=== PATIENT | female | born 1955 | race Caucasian/White ===

== ENCOUNTER → 2018-09-29 | Outpatient (CLI) | payer MEDICARE, OTHER ==
[~2018-09-29] MED LIST: ACEBUTCAFT PO; ACETAMINOPHEN; ACYC800 PO; ALBIPROI INH; ALBU2.5V5 NEB; ALBU90OI; ALBU90OI INH; ALBU90OI6 INH; ALBU90OI61 INH; ALPR1 PO; AMIT25 PO; AMIT50 PO; AMIT75 PO; AMOCLA875 PO; AMOX500 PO; ARIP30 PO; ASCO500 PO; ATOR40TA; ATOR40TA PO; AZIT250 PO; Abilify5 MG PO; Alprazolam2 MG PO; Amitriptyline150 MG PO; Ativan1 MG PO; BASAGLAR K100 UNIT/1 SC; BENZ1; BUTASPCAF PO; Benztropine Mesy1 MG PO; CARV6.25 PO; CHOL10002 PO; CIPR500 PO; CLON.1 PO; CLON.2 TOP; CLON.5; CLON.5 PO; CLON1; CLON1 PO; CLON2; CLON2 PO; CODBUTACEC PO; CYAN500 PO; CYCL10 PO; CYMBALTA; Cymbalta30 MG PO; DEPAKOTE; DHEA PO; DIAZ10 PO; DIAZ2 PO; DIAZ5 PO; DIVA125EC PO; DIVA500EC; DIVA500ER; DIVA500ER PO; DOXE25 PO; DOXE50; DULO30; DULO30 PO; DULO60 PO; ERGO400 PO; ERGO50000 PO; FERR325; FERR325 PO; FLUSAL115; FLUSAL2505; FLUSAL2505 IH; FLUSAL5005 IH; FLUSAL5005 INH; FLUT110OIA IH; FLUT1DIS8 INH; FURO20 PO; Ferrous Sulfat325 M2 PO; Flonase 0.05% N16 GM; Furosemide40 MG PO; GABA100 PO; GABA300 PO; GABA400 PO; GABA600 PO; GABA800 PO; GLIM2 PO; GUAIFENESIN ER600 MG PO; HYDACE5; HYDACE5 PO; HYDACE7.5; HYDACE7.5 PO; HYDCOR10; HYDROCODONE; HYDSUL200; HYOS.125; IBUP600 PO; INSLI100I SUBQ; INSU100I6 SC; INSULANI SC; INSULANPEN SC; LAMICTAL; LAMO100 PO; LAMO25; LEVFLO500 PO; LEVSOD25; LEVSOD50 PO; LEVSOD75 PO; LISI20 PO; LITH300C PO; LITH300ER PO; LORA.5 PO; LORA1 PO; LOXA25 PO; Loxapine25 MG PO; MECL25 PO; METF500; METF500 PO; METF500C PO; METH10; METH5; METO50ER; METO50ER PO; MIRT15; MIRT30 PO; NAPR500 PO; NIFE90ER PO; NITR100CA PO; Novolog100 UNIT/1 SC; OLAN20 MM; OLAN5 PO; OMEP20ER PO; OMEP40CA12 PO; ONDA4 PO; ONDA8 PO; OXYACE5T PO; OXYACE7.5T PO; Omeprazole20 M1 PO; PANT40 PO; PARO10 PO; PIOG15; PIOG15 PO; POTA10T; POTCHL20ER PO; PRAZ1 PO; PRAZ2 PO; PRED10 PO; PRO AIR; PROG100 PO; PROGESTERONE CREAM; PROGESTRONE VAG; PROM25; PROM25 PO; Prinivil10 MG PO; QUET100; QUET100 PO; QUET200; QUET200 PO; QUET25; QUET300; QUETIAPINE FUM400 M1 PO; RANI150; RANI150 PO; RXOXYACE PO; RXPRED10; SEROQUEL; SIMV40; SIMV40 PO; SIMV80 PO; SUCR1 PO; SUMA25 PO; Seroquel Xr400 MG PO; TOPI50 PO; TRAM50 PO; TRAZ100 PO; TRAZ150T57 PO; TRAZ50 PO; VIBRYD PO; VITAMIN B122500 MCG PO; Ventolin Soln3 ML INH; Ventolin5 MG/1 ML INH; Vitamin D400 UNI1 PO; Zestril40 MG; Zofran8 MG PO; [UNRECOGNIZED DRUG - OTHER] PO; [UNRECOGNIZED DRUG - REMARK]; [UNRECOGNIZED DRUG - REMARK]; [UNRECOGNIZED DRUG - REMARK]; [UNRECOGNIZED DRUG - REMARK]
[2018-09-29 12:57] LABS: BASOPHILS ABSOLUTE AUTO 0.05 K/mm3 (0.00-0.23); BASOPHILS PERCENT AUTO 0 % (0-2); EOSINOPHILS ABSOLUTE AUTO 0.45 K/mm3 (0.00-0.68); EOSINOPHILS PERCENT AUTO 4 % (0-6); Hematocrit 39.7 % (33.0-51.0); Hemoglobin 13.6 g/dL (11.5-16.0); IMMATURE GRAN ABSOLUTE AUTO 0.04 K/mm3 (0.00-0.10); IMMATURE GRAN PERCENT AUTO 0 % (0-1); LYMPHOCYTES ABSOLUTE AUTO 3.15 K/mm3 (0.84-5.20); LYMPHOCYTES PERCENT AUTO 28 % (21-46); MONOCYTES ABSOLUTE AUTO 0.53 K/mm3 (0.16-1.47); MONOCYTES PERCENT AUTO 5 % (4-13); Mean Corpuscular HGB 29.3 pg (26.0-34.0); Mean Corpuscular HGB Conc 34.3 g/dL (31.5-36.5); Mean Corpuscular Volume 86 fL (80-100); Mean Platelet Volume 10.6 fL (9.1-12.4); NEUTROPHILS ABSOLUTE AUTO 7.06 K/mm3 (1.96-9.15); NEUTROPHILS PERCENT AUTO 63 % (41-73); Platelet Count 285 K/mm3 (150-400); RDW Coefficient Variation 13.8 % (11.7-14.2); RDW Standard Deviation 42.5 fL (35.1-46.3); Red Blood Cell Count 4.64 M/mm3 (3.80-5.20); White Blood Cell Count 11.28 K/mm3 (4.00-11.30)
[2018-09-29 13:15] LABS: Albumin, Blood 3.7 g/dL (3.4-5.0); Albumin/Globulin Ratio 0.9 (0.8-1.8); Bilirubin, Total 0.4 mg/dL (0.1-1.0); Bun/Creatinine Ratio 14.3 (12.0-20.0); Calcium, Blood 9.8 mg/dL (8.5-10.1); Creatinine, Blood 1.05 mg/dL (0.40-1.00); Potassium, Blood 3.8 mmol/L (3.5-5.5); Thyroid Stimulating Hormone 3.158 uIU/mL (0.360-4.800); Total Protein, Blood 7.7 g/dL (6.4-8.2)
[2018-09-29 13:45] LABS: Lithium 1.26 mmol/L (0.60-1.20)
== END | disposition home or self-care (01) ==
LOC: LAB EV 12:42 → LAB SHORT 12:42
PROVIDERS: Family Medicine
DX: R53.83 Other fatigue (principal); N39.0 Urinary tract infection, site not specified; T50.905A Adverse effect of unspecified drugs, medicaments and biological substances, initial encounter
CPT/HCPCS: 80053; 80178; 84443; 85025; 87086

== ENCOUNTER 2018-10-03 14:51 | Emergency (ER) | payer MEDICARE, OTHER ==
[~2018-10-03] VITALS: Ht 162.6 cm; Wt 81.7 kg
[2018-10-03 16:07] LABS: BASOPHILS ABSOLUTE AUTO 0.06 K/mm3 (0.00-0.23); BASOPHILS PERCENT AUTO 1 % (0-2); EOSINOPHILS ABSOLUTE AUTO 0.22 K/mm3 (0.00-0.68); EOSINOPHILS PERCENT AUTO 2 % (0-6); Hematocrit 39.4 % (33.0-51.0); Hemoglobin 13.3 g/dL (11.5-16.0); IMMATURE GRAN ABSOLUTE AUTO 0.03 K/mm3 (0.00-0.10); IMMATURE GRAN PERCENT AUTO 0 % (0-1); LYMPHOCYTES ABSOLUTE AUTO 3.29 K/mm3 (0.84-5.20); LYMPHOCYTES PERCENT AUTO 29 % (21-46); MONOCYTES ABSOLUTE AUTO 0.67 K/mm3 (0.16-1.47); MONOCYTES PERCENT AUTO 6 % (4-13); Mean Corpuscular HGB 29.1 pg (26.0-34.0); Mean Corpuscular HGB Conc 33.8 g/dL (31.5-36.5); Mean Corpuscular Volume 86 fL (80-100); Mean Platelet Volume 10.7 fL (9.1-12.4); NEUTROPHILS ABSOLUTE AUTO 6.94 K/mm3 (1.96-9.15); NEUTROPHILS PERCENT AUTO 62 % (41-73); Platelet Count 315 K/mm3 (150-400); RDW Coefficient Variation 13.5 % (11.7-14.2); RDW Standard Deviation 41.9 fL (35.1-46.3); Red Blood Cell Count 4.57 M/mm3 (3.80-5.20); White Blood Cell Count 11.21 K/mm3 (4.00-11.30)
[2018-10-03 16:18] LABS: Alanine Aminotransfer (ALT/SGP 23 U/L (12-78); Albumin, Blood 4.2 g/dL (3.4-5.0); Alk Phos 147 U/L (50-136); Anion Gap 10 mmol/L (6-16); Aspartate Aminotrans (AST/SGOT 11 U/L (12-37); Bilirubin, Total 0.5 mg/dL (0.1-1.0); Blood Urea Nitrogen 16 mg/dL (8-24); Bun/Creatinine Ratio 20.9 (12.0-20.0); CO2, Blood 24 mmol/L (21-32); Calcium, Blood 9.5 mg/dL (8.5-10.1); Chloride, Blood 100 mmol/L (98-108); Creatinine, Blood 0.76 mg/dL (0.40-1.00); Glomerular Filtration Rate >60 (60-); Glucose, Blood 259 mg/dL (70-99); Potassium, Blood 3.6 mmol/L (3.5-5.5); Sodium, Blood 134 mmol/L (136-145); Total Protein, Blood 8.2 g/dL (6.4-8.2)
[2018-10-03 16:26] LABS: Beta-hydroxybutyrate 1.1 mg/dL (0.2-2.8)
[2018-10-03 16:39] LABS: Lithium 0.83 mmol/L (0.60-1.20)
== END 2018-10-03 16:56 | disposition home or self-care (01) ==
LOC: ER 14:51
PROVIDERS: Physician Assistant
DX: R41.0 Disorientation, unspecified (principal); F31.81 Bipolar II disorder; E11.9 Type 2 diabetes mellitus without complications; I10 Essential (primary) hypertension; E03.9 Hypothyroidism, unspecified; K21.9 Gastro-esophageal reflux disease without esophagitis; E78.5 Hyperlipidemia, unspecified; Z79.899 Other long term (current) drug therapy; Z79.4 Long term (current) use of insulin
CPT/HCPCS: 36415; 70450; 80053; 80178; 82010; 84443; 85025; 93005; 93010; 96374; 99285-25; J2405

== ENCOUNTER → 2018-10-25 | Outpatient (CLI) | payer MEDICARE, OTHER ==
[2018-10-25 17:16] LABS: Source, Urine Clean Catch
[2018-10-25 19:24] LABS: Bilirubin, Urine Neg (Neg); Blood, Urine Neg (Neg); Glucose Qualitative, Urine 4+ (Neg); Ketones, Urine Neg (Neg); Leukocyte Esterase, Urine 1+ (Neg); Nitrite, Urine Neg (Neg); Protein, Urine Neg (Neg); Specific Gravity, Urine 1.015 (1.003-1.022); Urobilinogen, Urine NORM (Normal)
[2018-10-25 19:51] LABS: Appearance, Urine Hazy (Clear); Color, Urine Yellow (P-Yellow)
[2018-10-25 19:52] LABS: Bacteria Few /hpf; Red Blood Cells, Urine Not Seen /hpf (0-2); Squamous Epithelial Cells Mod /hpf (Few)
== END | disposition home or self-care (01) ==
LOC: LAB SHORT 17:06 → LAB 17:06
PROVIDERS: Nurse Practitioner Family
DX: N39.0 Urinary tract infection, site not specified (principal)
CPT/HCPCS: 81001; 87086

== ENCOUNTER → 2018-11-10 | Outpatient (CLI) | payer MEDICARE, OTHER ==
[2018-11-12 15:07] LABS: HPV 16 Negative (Negative); HPV 18 Negative (Negative); HPV OTHER HR TYPES Negative (Negative)
== END | disposition home or self-care (01) ==
LOC: LAB 11:42 → LAB SHORT 11:42
PROVIDERS: Obstetrics & Gynecology
DX: Z01.419 Encounter for gynecological examination (general) (routine) without abnormal findings (principal)
CPT/HCPCS: 87624; G0123

== ENCOUNTER 2018-11-17 00:48 | Observation (INO) | payer MEDICARE, OTHER ==
[~2018-11-17] VITALS: Ht 162.6 cm; Wt 80.7 kg
[2018-11-17 01:47] LABS: BASOPHILS ABSOLUTE AUTO 0.04 K/mm3 (0.00-0.23); BASOPHILS PERCENT AUTO 1 % (0-2); EOSINOPHILS PERCENT AUTO 3 % (0-6); Hematocrit 39.1 % (33.0-51.0); Hemoglobin 12.9 g/dL (11.5-16.0); IMMATURE GRAN ABSOLUTE AUTO 0.02 K/mm3 (0.00-0.10); IMMATURE GRAN PERCENT AUTO 0 % (0-1); LYMPHOCYTES ABSOLUTE AUTO 2.76 K/mm3 (0.84-5.20); LYMPHOCYTES PERCENT AUTO 37 % (21-46); MONOCYTES ABSOLUTE AUTO 0.42 K/mm3 (0.16-1.47); MONOCYTES PERCENT AUTO 6 % (4-13); Mean Corpuscular HGB 29.8 pg (26.0-34.0); Mean Corpuscular Volume 90 fL (80-100); Mean Platelet Volume 10.7 fL (9.1-12.4); NEUTROPHILS ABSOLUTE AUTO 3.97 K/mm3 (1.96-9.15); NEUTROPHILS PERCENT AUTO 54 % (41-73); Platelet Count 203 K/mm3 (150-400); RDW Coefficient Variation 13.1 % (11.7-14.2); RDW Standard Deviation 43.7 fL (35.1-46.3); Red Blood Cell Count 4.33 M/mm3 (3.80-5.20); White Blood Cell Count 7.41 K/mm3 (4.00-11.30)
[2018-11-17 01:59] LABS: Alanine Aminotransfer (ALT/SGP 37 U/L (12-78); Albumin, Blood 3.8 g/dL (3.4-5.0); Albumin/Globulin Ratio 1.1 (0.8-1.8); Alk Phos 133 U/L (50-136); Anion Gap 10 mmol/L (6-16); Aspartate Aminotrans (AST/SGOT 30 U/L (12-37); Bilirubin, Total 0.5 mg/dL (0.1-1.0); Blood Urea Nitrogen 10 mg/dL (8-24); Bun/Creatinine Ratio 18.5 (12.0-20.0); CO2, Blood 25 mmol/L (21-32); Calcium, Blood 9.2 mg/dL (8.5-10.1); Chloride, Blood 103 mmol/L (98-108); Creatinine, Blood 0.54 mg/dL (0.40-1.00); Globulin, Blood 3.6 g/dL (2.2-4.0); Glomerular Filtration Rate >60 (60-); Glucose, Blood 274 mg/dL (70-99); Potassium, Blood 3.6 mmol/L (3.5-5.5); Sodium, Blood 138 mmol/L (136-145); Total Protein, Blood 7.4 g/dL (6.4-8.2)
[2018-11-17] MEDS ORDERED: GABAPENTIN (02:25)
[2018-11-17] MEDS ORDERED: OMEPRAZOLE (02:25)
[2018-11-17] MEDS ORDERED: LEVO-T75 MCG PO (02:25)
[2018-11-17] MEDS ORDERED: CLONIDINE (02:25)
[2018-11-17] MEDS ORDERED: PROTONIX (02:25)
[2018-11-17] MEDS ORDERED: LISINOPRIL PO (02:25)
[2018-11-17] MEDS ORDERED: ADVAIR INH (02:27)
[2018-11-17] MEDS ORDERED: NOVOLOG (02:27)
[2018-11-17] MEDS ORDERED: INSULANPEN PO (02:27)
[2018-11-17] MEDS ORDERED: SEROQUEL (02:27)
[2018-11-17] MEDS ORDERED: ZYPREXA (02:27)
[2018-11-17] MEDS ORDERED: TRAZODONE (02:27)
[2018-11-17] MEDS ORDERED: [UNRECOGNIZED DRUG - OTHER] (02:28)
[2018-11-17] MEDS ORDERED: NITRO (02:28)
[2018-11-17] MEDS ORDERED: SUMATRIPTAN-NA1 EACH (03:19)
[2018-11-17] MEDS ORDERED: ATOR20 (03:19)
[2018-11-17 05:33] LABS: Hematocrit 35.9 % (33.0-51.0); Hemoglobin 11.7 g/dL (11.5-16.0)
[2018-11-17] MEDS ORDERED: METF500C PO (05:45)
[2018-11-17] MEDS ORDERED: ALBU2.5V5 NEB (05:47)
[2018-11-17] MEDS ORDERED: ALBU90OI INH (05:47)
[2018-11-17] MEDS ORDERED: Imitrex25 MG PO (05:49)
[2018-11-17] MEDS ORDERED: LISI5 PO (05:50)
[2018-11-17] MEDS ORDERED: ASCO500 PO (05:52)
[2018-11-17] MEDS ORDERED: CHOL10002 PO (05:52)
[2018-11-17] MEDS ORDERED: Flonase 0.05% N16 GM (05:53)
[2018-11-17] MEDS ORDERED: CYAN500 PO (05:53)
[2018-11-17] MEDS ORDERED: CYCL10 PO (05:54)
[2018-11-17] MEDS ORDERED: QUET200 PO (05:54)
[2018-11-17] MEDS ORDERED: TRAZ50 PO ×2 (05:55→05:56)
[2018-11-17] MEDS ORDERED: LORA1 PO (05:55)
[2018-11-17] MEDS ORDERED: GABA400 PO (05:56)
[2018-11-17] MEDS ORDERED: OLAN10A MM (05:56)
[2018-11-17] MEDS ORDERED: PANT40 PO (05:57)
[2018-11-17] MEDS ORDERED: CLON.1 PO (05:57)
[2018-11-17] MEDS ORDERED: ONDA4 PO (05:58)
[2018-11-17 06:00] LABS: Hematocrit 35.9 % (33.0-51.0); Hemoglobin 11.7 g/dL (11.5-16.0); Mean Corpuscular HGB 29.8 pg (26.0-34.0); Mean Corpuscular HGB Conc 32.6 g/dL (31.5-36.5); Mean Corpuscular Volume 91 fL (80-100); Mean Platelet Volume 11.2 fL (9.1-12.4); Platelet Count 148 K/mm3 (150-400); RDW Coefficient Variation 13.3 % (11.7-14.2); RDW Standard Deviation 44.7 fL (35.1-46.3); Red Blood Cell Count 3.93 M/mm3 (3.80-5.20); White Blood Cell Count 7.52 K/mm3 (4.00-11.30)
[2018-11-17 06:33] LABS: Cholesterol 205 mg/dL (50-200); HDL Cholesterol 34 mg/dL (>39); LDL/HDL RATIO 3.4; Low Density Lipoprotein Chol 116 mg/dL (0-110); Triglycerides 276 mg/dL (30-160); Very Low Density Lipoprot Chol 55 mg/dL (6-32)
--- NOTE | 2018-11-17 06:53 | NUR ---
SHIFT SUMMARY & TRANSFER NOTE: PT NEW ED ADMIT EARLY THIS AM. PT TRANSFERRED TO BED SBA, STEADY GAIT. A & 0 X 4, PLEASANT & COOPERATIVE. PT C/O OF VOMITING MIXED RED + DARK BLOOD SINCE 1899 ON 11/16. HOWEVER, PT STATES THIS HAS BEEN AN ONGOING PROBLEM OFF/ON X 6 MONTHS. PT WAS SUPPOSED TO HAVE AN ENDOSCOPY c DR CANDELARIA IN [place], BUT DID NOT SHOW UP TO [facility]. PT HAS HX OF COLON POLYPS AND ESOPHAGITIS. SINCE ARRIVAL TO HOSPITAL, PT HAS NOT HAD ANY EMESIS. DR GORDILLO IN TO ASSESS PT AT BEDSIDE. ZOFRAN ADMINISTERED 1X FOR NAUSEA, RELIEF PROVIDED. PT ON PROTONIX DRIP @ 10 ML/HR AND NS RUNNING @ 75 ML/HR X 1 BAG. CONSULT CALLED IN TO DR CANDELARIA FOR ENDOSCOPY TODAY, PT ON CLEAR LIQUIDS DIET TOLERATED. 18 G IN L HAND IS PATENT. BLOOD CONSENT SIGNED. NO OTHER CHANGES TO REPORT. WILL CONT TO MONITOR AND PROVIDE CARE UNTIL PRESUMED BY ONCOMING RN.
[2018-11-17 10:16] LABS: Hematocrit 38.2 % (33.0-51.0); Hemoglobin 12.1 g/dL (11.5-16.0)
[2018-11-17] MEDS ORDERED: DULO30 (12:07)
[2018-11-17] MEDS ORDERED: DULO30 PO (12:10)
--- NOTE | 2018-11-17 12:25 | NUR ---
Spiritual care visit conducted. Patient was lying in bed and alert when I entered the patient's room. Patient was quite talkative and openly shared about her mental health struggles, about the strength and peace that she finds from God and about her family unit complications. I listened empathically, provided emotional support, reinforced helpful attitudes and practices and provided prayer. Patient responded well and verbalized thankfulness for my visit.
[2018-11-17 16:57] LABS: Hematocrit 36.2 % (33.0-51.0); Hemoglobin 11.6 g/dL (11.5-16.0)
--- NOTE | 2018-11-17 18:32 | NUR ---
PT. LYING QUIETLY AFTER EATING CL DINNER. DENIES PAIN. HAS NOT HAD ANY FURTHER EMESIS SINCE COMING TO FLOOR. DR. BLANCO WILL BE DOING THE EGD TOMORROW. DON'T HAVE A TIME FOR PROCEDURE. DR. BLANCO WILL STOP BY TO SEE PT. IN AM.
[2018-11-17 21:19] LABS: Alanine Aminotransfer (ALT/SGP 33 U/L (12-78); Albumin, Blood 3.4 g/dL (3.4-5.0); Albumin/Globulin Ratio 1.1 (0.8-1.8); Alk Phos 117 U/L (50-136); Anion Gap 10 mmol/L (6-16); Aspartate Aminotrans (AST/SGOT 23 U/L (12-37); Bilirubin, Total 0.4 mg/dL (0.1-1.0); Blood Urea Nitrogen 10 mg/dL (8-24); Bun/Creatinine Ratio 18.5 (12.0-20.0); CO2, Blood 24 mmol/L (21-32); Calcium, Blood 8.7 mg/dL (8.5-10.1); Chloride, Blood 105 mmol/L (98-108); Creatinine, Blood 0.54 mg/dL (0.40-1.00); Globulin, Blood 3.2 g/dL (2.2-4.0); Glomerular Filtration Rate >60 (60-); Glucose, Blood 272 mg/dL (70-99); Potassium, Blood 3.7 mmol/L (3.5-5.5); Sodium, Blood 139 mmol/L (136-145); Total Protein, Blood 6.6 g/dL (6.4-8.2)
[2018-11-17 21:59] LABS: Hematocrit 36.9 % (33.0-51.0); Hemoglobin 11.9 g/dL (11.5-16.0)
[2018-11-18 05:07] LABS: BASOPHILS ABSOLUTE AUTO 0.06 K/mm3 (0.00-0.23); BASOPHILS PERCENT AUTO 1 % (0-2); EOSINOPHILS ABSOLUTE AUTO 0.23 K/mm3 (0.00-0.68); EOSINOPHILS PERCENT AUTO 4 % (0-6); Hematocrit 38.1 % (33.0-51.0); Hemoglobin 12.1 g/dL (11.5-16.0); IMMATURE GRAN ABSOLUTE AUTO 0.02 K/mm3 (0.00-0.10); IMMATURE GRAN PERCENT AUTO 0 % (0-1); LYMPHOCYTES ABSOLUTE AUTO 3.54 K/mm3 (0.84-5.20); LYMPHOCYTES PERCENT AUTO 58 % (21-46); MONOCYTES ABSOLUTE AUTO 0.37 K/mm3 (0.16-1.47); MONOCYTES PERCENT AUTO 6 % (4-13); Mean Corpuscular HGB 29.1 pg (26.0-34.0); Mean Corpuscular HGB Conc 31.8 g/dL (31.5-36.5); Mean Corpuscular Volume 92 fL (80-100); Mean Platelet Volume 10.9 fL (9.1-12.4); NEUTROPHILS ABSOLUTE AUTO 1.91 K/mm3 (1.96-9.15); NEUTROPHILS PERCENT AUTO 31 % (41-73); Platelet Count 178 K/mm3 (150-400); RDW Coefficient Variation 13.2 % (11.7-14.2); RDW Standard Deviation 44.2 fL (35.1-46.3); Red Blood Cell Count 4.16 M/mm3 (3.80-5.20); White Blood Cell Count 6.13 K/mm3 (4.00-11.30)
--- NOTE | 2018-11-18 06:10 | NUR ---
SHIFT SUMMARY: DR DAWN IN TO SEE PT LAST NIGHT. PT WILL HAVE ENDOSCOPY AT 0800 ON 11/18. NPO SINCE 0500 PER VERBAL ORDER. PT REQUESTS HOME BEDTIME MEDS THEY HAVE NOT BEEN ORDERED BY HOSPITALIST YET. ORDERS GIVEN FOR HOME BEDTIME MEDS AND ADMINISTERED AROUND 0000, SEE EMAR. TELE IN PLACE; NSR @ 89 BPM. PT DOES NOT HAVE EMESIS OR NAUSEA THIS SHIFT, DENIES PAIN. INDEPENDENT IN RM. PROTONIX DRIP @ 10 ML/HR. WILL CONT TO MONITOR AND PROVIDE CARE UNTIL PRESUMED BY ONCOMING RN.
--- NOTE | 2018-11-18 07:15 | NUR ---
INTO SDS VIA [employer]. HISTORY AND ALLERGIES REVIEWED. NPO STATUS CONFIRMED. LUNGS CLEAR-SATS>90% ON RA.
--- NOTE | 2018-11-18 07:31 | NUR ---
11/18/18 0731 [place] History, Chart, Medications and Allergies reviewed before start of procedure.MONITOR INTACT WITH CONTINUOUS PULSE OXIMETRY AND INTERMITTENT BP.3-LEAD EKG REVIEWED WITH PHYSICIAN PRIOR TO START OF PROCEDURE.O2 VIA N/C INTACT THROUGHOUT SEDATION/PROCEDURE. Patient confirms NPO status and agrees with scheduled surgery.PATIENT DETERMINED TO BE ASA APPROPRIATE FOR PROPOFOL SEDATION PRIOR TO START OF PROCEDURE BY DR. DAWN.
--- NOTE | 2018-11-18 18:26 | NUR ---
SHIFT SUMMARY THE PATIENT PRESENTED THIS MORNING GOING TO HAVE AN EGD DONE. THE PATIENT ARRIVED BACK ON THE FLOOR AT 0840. THE PATIENT'S VITALS WNL, LUNGS WERE CLEAR AND SHE WAS A&O X4. THE PATIENT HAS BEEN WAITING FOR DISCHARGE ORDERS MOST OF THE SHIFT AND THEY WERE ISSUED AT 1825. THE PATIENT WAS NOTIFIED THAT SHE WILL BE GOING HOME TONIGHT. THE PATIENT IS RESTING AT THIS TIME, WILL CONTINUE TO MONITOR.
== END 2018-11-18 19:18 | disposition home or self-care (01) ==
LOC: ER 00:48 → MEDS 00:49
PROVIDERS: Emergency Medicine; Hospitalist; Internal Medicine Gastroenterology; ADMIT Internal Medicine
PROC: 0DJ08ZZ Inspection of Upper Intestinal Tract, Via Natural or Artificial Opening Endoscopic (ICD-10-PCS; principal; 2018-11-18 07:30)
DX: K22.10 Ulcer of esophagus without bleeding (principal); K85.90 Acute pancreatitis without necrosis or infection, unspecified; K44.9 Diaphragmatic hernia without obstruction or gangrene; D50.9 Iron deficiency anemia, unspecified; I10 Essential (primary) hypertension; E11.42 Type 2 diabetes mellitus with diabetic polyneuropathy; K21.9 Gastro-esophageal reflux disease without esophagitis; J44.9 Chronic obstructive pulmonary disease, unspecified; F31.9 Bipolar disorder, unspecified; E03.9 Hypothyroidism, unspecified; E78.5 Hyperlipidemia, unspecified; E78.00 Pure hypercholesterolemia, unspecified; E66.9 Obesity, unspecified; Z86.010 Personal history of colon polyps; Z98.890 Other specified postprocedural states; Z88.5 Allergy status to narcotic agent; Z88.2 Allergy status to sulfonamides; Z91.048 Other nonmedicinal substance allergy status; Z79.899 Other long term (current) drug therapy; Z79.4 Long term (current) use of insulin
CPT/HCPCS: 36415; 76705; 80053; 80061; 82947; 83690; 85014; 85018; 85025; 85027; 96374; 99285-25; C9113; J2405; J2704; J7030; J7120

== ENCOUNTER 2019-07-04 09:49 | Emergency (ER) | payer MEDICARE, OTHER ==
[~2019-07-04] VITALS: Ht 162.6 cm; Wt 78.0 kg
[~2019-07-04 09:49] MED LIST changes: +ADVAIR INH; +ATOR20; +CLONIDINE; +GABAPENTIN; +INSULANPEN PO; +Imitrex25 MG PO; +LEVO-T75 MCG PO; +LISI5 PO; +LISINOPRIL PO; +NITRO; +NOVOLOG; +OLAN10A MM; +OMEPRAZOLE; +PROTONIX; +SUMATRIPTAN-NA1 EACH; +TRAZODONE; +ZYPREXA; +[UNRECOGNIZED DRUG - OTHER]
[2019-07-04 10:23] LABS: BASOPHILS ABSOLUTE AUTO 0.03 K/mm3 (0.00-0.23); BASOPHILS PERCENT AUTO 1 % (0-2); EOSINOPHILS ABSOLUTE AUTO 0.19 K/mm3 (0.00-0.68); EOSINOPHILS PERCENT AUTO 5 % (0-6); Hematocrit 37.4 % (33.0-51.0); Hemoglobin 12.5 g/dL (11.5-16.0); IMMATURE GRAN ABSOLUTE AUTO 0.02 K/mm3 (0.00-0.10); IMMATURE GRAN PERCENT AUTO 1 % (0-1); LYMPHOCYTES ABSOLUTE AUTO 1.73 K/mm3 (0.84-5.20); LYMPHOCYTES PERCENT AUTO 42 % (21-46); MONOCYTES ABSOLUTE AUTO 0.35 K/mm3 (0.16-1.47); MONOCYTES PERCENT AUTO 8 % (4-13); Mean Corpuscular HGB 29.6 pg (26.0-34.0); Mean Corpuscular HGB Conc 33.4 g/dL (31.5-36.5); Mean Corpuscular Volume 88 fL (80-100); Mean Platelet Volume 10.5 fL (9.1-12.4); NEUTROPHILS ABSOLUTE AUTO 1.83 K/mm3 (1.96-9.15); NEUTROPHILS PERCENT AUTO 44 % (41-73); Platelet Count 181 K/mm3 (150-400); RDW Coefficient Variation 13.4 % (11.7-14.2); RDW Standard Deviation 43.8 fL (35.1-46.3); Red Blood Cell Count 4.23 M/mm3 (3.80-5.20); White Blood Cell Count 4.15 K/mm3 (4.00-11.30)
[2019-07-04 10:50] LABS: Alanine Aminotransfer (ALT/SGP 34 U/L (12-78); Albumin, Blood 3.4 g/dL (3.4-5.0); Alk Phos 155 U/L (50-136); Anion Gap 8 mmol/L (6-16); Aspartate Aminotrans (AST/SGOT 26 U/L (12-37); Bilirubin, Total 0.6 mg/dL (0.1-1.0); Blood Urea Nitrogen 5 mg/dL (8-24); Bun/Creatinine Ratio 7.7 (12.0-20.0); CO2, Blood 26 mmol/L (21-32); Calcium, Blood 8.9 mg/dL (8.5-10.1); Chloride, Blood 108 mmol/L (98-108); Creatinine, Blood 0.65 mg/dL (0.40-1.00); Globulin, Blood 3.3 g/dL (2.2-4.0); Glomerular Filtration Rate >60 (60-); Glucose, Blood 281 mg/dL (70-99); Potassium, Blood 3.6 mmol/L (3.5-5.5); Sodium, Blood 142 mmol/L (136-145); Total Protein, Blood 6.7 g/dL (6.4-8.2); Troponin I <0.015 ng/mL (0.000-0.040)
== END 2019-07-04 14:10 | disposition home or self-care (01) ==
LOC: ER 09:49
PROVIDERS: Emergency Medicine
DX: K44.9 Diaphragmatic hernia without obstruction or gangrene (principal); F41.9 Anxiety disorder, unspecified; F32.9 Major depressive disorder, single episode, unspecified; I10 Essential (primary) hypertension; F43.10 Post-traumatic stress disorder, unspecified; E11.42 Type 2 diabetes mellitus with diabetic polyneuropathy; Z91.048 Other nonmedicinal substance allergy status; Z79.899 Other long term (current) drug therapy; Z79.4 Long term (current) use of insulin; Z79.891 Long term (current) use of opiate analgesic
CPT/HCPCS: 36415; 71046; 80053; 83690; 84484; 85025; 93005; 93010; 99285-25

== ENCOUNTER 2019-10-05 14:53 | Emergency (ER) | payer MEDICARE, OTHER ==
[~2019-10-05] VITALS: Ht 162.6 cm; Wt 81.2 kg
== END 2019-10-05 16:32 | disposition home or self-care (01) ==
LOC: ER 14:53
DX: G43.909 Migraine, unspecified, not intractable, without status migrainosus (principal); F31.9 Bipolar disorder, unspecified; E11.9 Type 2 diabetes mellitus without complications; I10 Essential (primary) hypertension; E03.9 Hypothyroidism, unspecified; K21.9 Gastro-esophageal reflux disease without esophagitis; J45.909 Unspecified asthma, uncomplicated; M79.7 Fibromyalgia; E78.5 Hyperlipidemia, unspecified
CPT/HCPCS: 70450; 93005; 93010; 96374; 96375; 99284-25; J0780; J1200; J1885; J7030

== ENCOUNTER 2019-10-11 10:45 | Emergency (ER) | payer MEDICARE, OTHER ==
[~2019-10-11] VITALS: Ht 162.6 cm; Wt 81.2 kg
[2019-10-11 11:53] LABS: BASOPHILS ABSOLUTE AUTO 0.04 K/mm3 (0.00-0.23); BASOPHILS PERCENT AUTO 1 % (0-2); EOSINOPHILS ABSOLUTE AUTO 0.25 K/mm3 (0.00-0.68); EOSINOPHILS PERCENT AUTO 3 % (0-6); Hematocrit 41.4 % (33.0-51.0); Hemoglobin 13.4 g/dL (11.5-16.0); IMMATURE GRAN ABSOLUTE AUTO 0.02 K/mm3 (0.00-0.10); IMMATURE GRAN PERCENT AUTO 0 % (0-1); LYMPHOCYTES ABSOLUTE AUTO 2.47 K/mm3 (0.84-5.20); LYMPHOCYTES PERCENT AUTO 34 % (21-46); MONOCYTES ABSOLUTE AUTO 0.33 K/mm3 (0.16-1.47); MONOCYTES PERCENT AUTO 5 % (4-13); Mean Corpuscular HGB 29.1 pg (26.0-34.0); Mean Corpuscular HGB Conc 32.4 g/dL (31.5-36.5); Mean Corpuscular Volume 90 fL (80-100); Mean Platelet Volume 10.5 fL (9.1-12.4); NEUTROPHILS ABSOLUTE AUTO 4.24 K/mm3 (1.96-9.15); NEUTROPHILS PERCENT AUTO 58 % (41-73); Platelet Count 214 K/mm3 (150-400); RDW Coefficient Variation 12.2 % (11.7-14.2); RDW Standard Deviation 40.1 fL (35.1-46.3); Red Blood Cell Count 4.61 M/mm3 (3.80-5.20); White Blood Cell Count 7.35 K/mm3 (4.00-11.30)
[2019-10-11 12:10] LABS: Alanine Aminotransfer (ALT/SGP 22 U/L (12-78); Albumin, Blood 3.6 g/dL (3.4-5.0); Alk Phos 135 U/L (50-136); Anion Gap 5 mmol/L (6-16); Aspartate Aminotrans (AST/SGOT 13 U/L (12-37); Bilirubin, Total 0.5 mg/dL (0.1-1.0); Blood Urea Nitrogen 11 mg/dL (8-24); CO2, Blood 29 mmol/L (21-32); Calcium, Blood 9.4 mg/dL (8.5-10.1); Chloride, Blood 109 mmol/L (98-108); Creatinine, Blood 0.61 mg/dL (0.40-1.00); Globulin, Blood 3.5 g/dL (2.2-4.0); Glomerular Filtration Rate >60 (60-); Glucose, Blood 139 mg/dL (70-99); Potassium, Blood 3.3 mmol/L (3.5-5.5); Sodium, Blood 143 mmol/L (136-145); Total Protein, Blood 7.1 g/dL (6.4-8.2)
== END 2019-10-11 14:01 | disposition left against medical advice (07) ==
LOC: ER 10:45
PROVIDERS: Physician Assistant
DX: Z53.21 Procedure and treatment not carried out due to patient leaving prior to being seen by health care provider (principal)
CPT/HCPCS: 36415; 80053; 85025; 86850; 86900; 86901; 93005; 93010; 99283-25

== ENCOUNTER → 2019-12-02 | Outpatient (CLI) | payer MEDICARE, OTHER ==
[2019-12-02 13:38] LABS: BASOPHILS ABSOLUTE AUTO 0.04 K/mm3 (0.00-0.23); BASOPHILS PERCENT AUTO 1 % (0-2); EOSINOPHILS ABSOLUTE AUTO 0.16 K/mm3 (0.00-0.68); EOSINOPHILS PERCENT AUTO 4 % (0-6); Hematocrit 38.2 % (33.0-51.0); Hemoglobin 12.3 g/dL (11.5-16.0); IMMATURE GRAN ABSOLUTE AUTO 0.01 K/mm3 (0.00-0.10); IMMATURE GRAN PERCENT AUTO 0 % (0-1); LYMPHOCYTES ABSOLUTE AUTO 1.99 K/mm3 (0.84-5.20); LYMPHOCYTES PERCENT AUTO 44 % (21-46); MONOCYTES ABSOLUTE AUTO 0.54 K/mm3 (0.16-1.47); MONOCYTES PERCENT AUTO 12 % (4-13); Mean Corpuscular HGB 28.6 pg (26.0-34.0); Mean Corpuscular HGB Conc 32.2 g/dL (31.5-36.5); Mean Corpuscular Volume 89 fL (80-100); Mean Platelet Volume 10.8 fL (9.1-12.4); NEUTROPHILS ABSOLUTE AUTO 1.83 K/mm3 (1.96-9.15); NEUTROPHILS PERCENT AUTO 40 % (41-73); Platelet Count 193 K/mm3 (150-400); RDW Coefficient Variation 13.7 % (11.7-14.2); RDW Standard Deviation 43.9 fL (35.1-46.3); White Blood Cell Count 4.57 K/mm3 (4.00-11.30)
[2019-12-02 13:49] LABS: Alanine Aminotransfer (ALT/SGP 12 U/L (12-78); Albumin, Blood 3.4 g/dL (3.4-5.0); Albumin/Globulin Ratio 0.9 (0.8-1.8); Alk Phos 116 U/L (50-136); Anion Gap 6 mmol/L (6-16); Aspartate Aminotrans (AST/SGOT 8 U/L (12-37); Bilirubin, Total 0.3 mg/dL (0.1-1.0); Blood Urea Nitrogen 8 mg/dL (8-24); Bun/Creatinine Ratio 14.1 (12.0-20.0); CO2, Blood 27 mmol/L (21-32); Calcium, Blood 8.6 mg/dL (8.5-10.1); Chloride, Blood 106 mmol/L (98-108); Creatinine, Blood 0.57 mg/dL (0.40-1.00); Globulin, Blood 3.6 g/dL (2.2-4.0); Glomerular Filtration Rate >60 (60-); Glucose, Blood 346 mg/dL (70-99); Potassium, Blood 3.7 mmol/L (3.5-5.5); Sodium, Blood 139 mmol/L (136-145)
[2019-12-05 12:11] LABS: Antinuclear Antibody Screen Positive (Negative)
[2019-12-07 12:08] LABS: ANA Pattern Homogenous
== END ==
LOC: LAB SHORT 13:21 → LAB 13:21
PROVIDERS: Nurse Practitioner
DX: N39.0 Urinary tract infection, site not specified (principal); L93.0 Discoid lupus erythematosus; R10.9 Unspecified abdominal pain; E11.9 Type 2 diabetes mellitus without complications
CPT/HCPCS: 80053; 83036; 83690; 85025; 85651; 86038; 86039; 87086